=== PATIENT | male | born 2000 | race Two or more races ===

== ENCOUNTER 2024-02-19 07:03 | Emergency (ER) | payer SELFPAY ==
[~2024-02-19] VITALS: Ht 180.3 cm; Wt 75.0 kg
[2024-02-19 07:10] VITALS: O2SAT 98
[2024-02-19 07:45] VITALS: BP 112/68; PULSE 108; RESP 18; TEMP 37.83636; O2SAT 99
[2024-02-19 07:57] LABS: HEMATOCRIT. 44.8 % (42.0-52.0); HEMOGLOBIN. 14.8 g/dL (14.0-18.0); MEAN CORPUSCULAR HEMOGLOBIN 29.4 pg (28.0-32.0); MEAN PLATELET VOLUME 9.3 fl (7.4-10.4); PLATELET 237 x1000/uL (130-400); RED BLOOD CELL COUNT 5.03 mill/uL (4.7-6.1); RED CELL DISTRIBUTION WIDTH 12.3 % (11.6-14.6); WHITE BLOOD COUNT 11.5 x1000/uL (4.5-11.0)
[2024-02-19 08:00] LABS: DIFFERENTIAL COMMENT 1
[2024-02-19 08:02] LABS: CHLORIDE 102 mEq/L (98-107); POTASSIUM 3.6 mEq/L (3.5-5.1); SODIUM 135 mEq/L (136-145)
[2024-02-19 08:03] LABS: CARBON DIOXIDE 27 mEq/L (21-32)
[2024-02-19 08:04] LABS: CALCIUM 9.2 mg/dL (8.7-10.4)
[2024-02-19 08:05] LABS: INR 1.2
[2024-02-19 08:08] LABS: CREATININE 1.3 mg/dL (0.6-1.3); GLUCOSE 113 mg/dL (70-105)
[2024-02-19 08:09] LABS: UREA NITROGEN BLOOD 16 mg/dL (9-23)
[2024-02-19 08:10] LABS: TROPONIN I HIGH SENSITIVITY 4 ng/L (3.0-53)
[2024-02-19 08:19] LABS: ETHANOL BLOOD < 10 mg/dL (<10)
[2024-02-19 08:49] LABS: PLATELET ESTIMATE NORMAL
== END 2024-02-19 09:28 | disposition left against medical advice (07) ==
LOC: ER 07:03
DX: S02.5XXA Fracture of tooth (traumatic), initial encounter for closed fracture (principal); R55 Syncope and collapse; X58.XXXA Exposure to other specified factors, initial encounter; Y93.89 Activity, other specified; Y92.89 Other specified places as the place of occurrence of the external cause; Y99.8 Other external cause status
CPT/HCPCS: 36415; 71045; 80048; 80320; 83605; 84145; 84484; 85025; 93005; 99285; G0480